=== PATIENT | female | born 1975 | race Hispanic/Latino ===

== ENCOUNTER 2017-02-01 07:47 | Day surgery (SDC) | payer SELFPAY ==
[2017-01-26 14:15] VITALS: BMI 22.6
[2017-02-01 08:44] VITALS: O2SAT 100
[2017-02-01] MEDS ORDERED: Lactated Ringer's 1,000 ML IV ONE (08:44)
[2017-02-01 09:18] LABS: BASO % 0.6 % (0.0-2.0); EOS # 0.1 K/uL (0.0-0.7); EOS % 1.6 % (0.0-4.0); HEMATOCRIT 40.1 % (34.0-47.0); LYMPH # 1.7 K/uL (1.0-4.3); LYMPH % 25.9 % (20.0-40.0); MEAN CELL VOLUME 91.8 fl (81.0-99.0); MEAN CORPUSCULAR HEMOGLOBIN 30.8 pg (27.0-31.0); MEAN CORPUSCULAR HGB CONC 33.6 g/dL (33.0-37.0); MEAN PLATELET VOLUME 8.5 fl (7.2-11.7); MONO # 0.4 K/uL (0.0-0.8); MONO % 6.6 % (0.0-10.0); NEUT # 4.2 K/uL (1.8-7.0); NEUT % 65.3 % (50.0-75.0); NRBC % 0.1 % (0.0-0.0); RED CELL DISTRIBUTION WIDTH 13.6 % (11.5-14.5); WHITE BLOOD COUNT 6.4 K/uL (4.8-10.8)
[2017-02-01 09:27] LABS: BLOOD UREA NITROGEN 13 mg/dl (7-17); CALCIUM 9.2 mg/dL (8.4-10.2); CARBON DIOXIDE 25 mmol/L (22-30); CHLORIDE 107 mmol/L (98-107); GFR AFRICAN-AMERICAN > 60; GLUCOSE,RANDOM 99 mg/dL (65-105)
[2017-02-01 09:29] LABS: SODIUM 140 mmol/l (132-148)
[2017-02-01] MEDS ORDERED: Succinylcholine 200 mg/10 ml Inj IV ONE (09:29)
[2017-02-01] MEDS ORDERED: Lidocaine 4% (Laryng-O-Jet) Kit MM ONE (09:29)
[2017-02-01] MEDS ORDERED: Propofol 10 mg/ml Inj (20 ML) ONE (09:29)
[2017-02-01] MEDS ORDERED: Lidocaine 2% MPF (5 ml) Inj ONE (09:31)
[2017-02-01] MEDS ORDERED: Dexamethasone 4 mg/1 ml ONE (09:32)
[2017-02-01] MEDS ORDERED: Strong Iodine Topical Sol. 5%-10% ONE (10:46)
[2017-02-01] MEDS ORDERED: Ferric Subsulfate Sol(60 mL) ONE (10:48)
[2017-02-01] MEDS ORDERED: Lactated Ringer's 1,000 ML IV SCH (11:04)
[2017-02-01] MEDS ORDERED: HYDROmorphone 0.5 mg/0.5 ml ISec IVP PRN (11:04)
[2017-02-01 11:47] VITALS: RESP 18
[2017-02-01 12:26] VITALS: BP 126/71; PULSE 77; TEMP 97.8
--- NOTE | 2017-02-01 14:25 | OP ---
PROCEDURE DATE: 02/01/2017 PREOPERATIVE DIAGNOSIS: This is a 41-year-old -0-3-0 with a known 1.7 cm submucosal fibroid with a recent history of miscarriage. POSTOPERATIVE DIAGNOSIS: This is a 41-year-old -0-3-0 with a known 1.7 cm submucosal fibroid with a recent history of miscarriage. PROCEDURE: Cervical dilation and an attempted hysteroscopy. SURGEON: Erica Joshua MD ANESTHESIOLOGIST: Toni Guallpa MD ANESTHESIA: General endotracheal tube anesthesia. COMPLICATIONS: None. EBL: Minimal. DESCRIPTION OF PROCEDURE: The patient was taken to the operating room with IV running. She was placed under general anesthesia. She was then prepped and draped in the dorsal lithotomy position. The bladder was emptied with a rubber catheter for clear urine. A weighted speculum was then placed in the posterior fornix of the vagina and a Calzada speculum was placed in the anterior wall of the vagina. Single tooth tenaculum was placed at the anterior lip of the cervix. The cervix was then gently dilated to about #18 dilator. The MyoSure scope was placed through the external os and it could not be placed past the level of the internal os. It was then attempted to dilate the cervix to #20 dilator and see if the scope could be placed into the endometrial cavity two more times. After the third attempt, it was decided to stop the procedure, so the scope was removed. The tenaculum was removed from the cervix and manual pressure was held with sponge on a stick. Hemostasis was noted. AstrinGyn was then applied to the tenaculum sites for further hemostasis. All instruments removed from the vagina. Sponge and instrument counts were correct. The patient was taken to the recovery room, extubated in stable condition. Erica Joshua MD [facility]
--- NOTE | 2017-02-01 16:19 | HP ---
HISTORY OF PRESENT ILLNESS: This is a 41-year-old G3, P0-0-3-0, last menstrual period was on 01/22/2017, who is scheduled today for hysteroscopic myomectomy due to an ultrasound done on 12/14/2016 revealing a submucosal fibroid that is about 1.7 cm in size. The patient reports that she would like to get and she reports that she had a miscarriage on 05/11/2016. The patient reports that she gets monthly periods that are not heavy. The patient is from [facility]. PAST MEDICAL HISTORY: No medical illness. PAST SURGICAL HISTORY: Dilation and curettage in 05/2016. MEDICATIONS: None. FAMILY HISTORY: Her parents are both alive and healthy, noncontributory. SOCIAL HISTORY: The patient does get exercise. She is . 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 She reports smoking a few cigarettes/ day, denies alcohol, or illicit drugs use. PAST GYNECOLOGIC HISTORY: The patient reports regular monthly periods that are not too heavy. She denies history of any STDs. OBSTETRIC HISTORY: She has had one miscarriage as above and 2 abortions in the past. ALLERGIES: NO KNOWN DRUG ALLERGIES. PHYSICAL EXAMINATION: VITAL SIGNS: Afebrile. Vital signs stable. ABDOMEN: Soft, nontender. EXTREMITIES: Nontender. In the office on 01/03/2017, her vaginal exam revealed white mucous discharge, adnexa with no masses, cervix normal, no cervical motion tenderness, and uterus is normal size and mobile. IMAGING: On 12/14/2016, ultrasound revealed a submucosal fibroid midline, 1 x 1.7 cm, not seen previously, unremarkable endometrial echo complex and normal adnexa. ASSESSMENT AND PLAN: This is a 41-year-old G3, P0-0-3-0, scheduled today for hysteroscopic myomectomy with unknown submucosal fibroid and history of miscarriages who desires to conceive. Erica Joshua MD [facility]
--- NOTE | 2017-02-15 08:41 | CP.SDSHP ---
Same Day Surgery H & P - Allergies Allergies: Allergies No Known Allergies Allergy (Verified 02/01/17 08:01) Short Stay Discharge - Short Stay Discharge Admitting Diagnosis/Reason for Visit: D25.0 R10.2 Disposition: HOME/ ROUTINE Referrals: Susanne Villar MD [Primary Care Provider] - Additional Instructions (Diet, Activity): Pt discharged home in stable condition and told to f/u in 2 weeks in the office.
== END 2017-02-01 12:50 | disposition home or self-care (01) ==
LOC: H.OPSURG 07:47
PROVIDERS: ATTEND Obstetrics & Gynecology
DX: D25.0 Submucous leiomyoma of uterus (principal); Z87.898 Personal history of other specified conditions; F17.210 Nicotine dependence, cigarettes, uncomplicated

== ENCOUNTER 2017-03-09 08:54 | Day surgery (SDC) | payer SELFPAY ==
[2017-03-07 11:59] VITALS: BMI 20.9
[2017-03-09 09:37] VITALS: RESP 18; O2SAT 99
[2017-03-09] MEDS ORDERED: Lactated Ringer's 1,000 ML IV ONE (09:49)
[2017-03-09] MEDS ORDERED: Silver Nitrate Topical - Stick ONE (10:33)
[2017-03-09] MEDS ORDERED: Strong Iodine Topical Sol. 5%-10% ONE (10:33)
[2017-03-09] MEDS ORDERED: Ferric Subsulfate Sol(60 mL) ONE (10:34)
[2017-03-09] MEDS ORDERED: Bupivacaine 0.5% Inj(30mL) ONE (10:34)
[2017-03-09] MEDS ORDERED: Lidocaine 1% Inj (20ml) ONE (10:34)
[2017-03-09] MEDS ORDERED: Propofol 10 mg/ml Inj (20 ML) ONE (10:55)
[2017-03-09] MEDS ORDERED: Midazolam 2 MG/2 ML VIAL ONE (10:55)
[2017-03-09] MEDS ORDERED: Ferric Subsulfate Sol(60 mL) TP ONE (11:50)
[2017-03-09] MEDS ORDERED: HYDROmorphone 0.5 mg/0.5 ml ISec IVP PRN (11:55)
[2017-03-09] MEDS ORDERED: Lactated Ringer's 1,000 ML IV SCH (11:55)
[2017-03-09 14:02] VITALS: PULSE 99
[2017-03-09 14:31] VITALS: BP 113/76; TEMP 97.8
--- NOTE | 2017-03-09 14:32 | HP ---
DATE: 03/09/2017 HISTORY OF PRESENT ILLNESS: This is a 41-year-old G3, P-0-0-3-0, last menstrual period on 02/16/2017, status post an attempted hysteroscopic myomectomy on 02/01/2017, which was not able to be completed due to the fact that the scope could not be placed beyond the internal os. The patient has a known submucosal fibroid and a history of miscarriage and the plan is for the patient to have the submucosal fibroid removed with hysteroscopy today. PAST MEDICAL HISTORY: Healthy. MEDICATIONS: None; the patient placed 2 misoprostol tablets 200 mcg (400mcg) in the vagina last night to help dilate her cervix. PAST SURGICAL HISTORY: D and C in 05/2016. SOCIAL HISTORY: The patient is . 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 She reports an occasional cigarette. Denies alcohol and illicit drug use. PAST GYNECOLOGIC HISTORY: She gets monthly periods. The patient denies history of abnormal Pap smears and denies history of STD's. PAST OBSTETRIC HISTORY: The patient has a history of 2 abortions and 1 miscarriage. Her miscarriage was in 05/2016. ALLERGIES: NO KNOWN DRUG ALLERGIES. FAMILY HISTORY: Noncontributory. PHYSICAL EXAMINATION: VITAL SIGNS: Afebrile. Vital signs stable. GENERAL: The patient appears comfortable lying in bed. ABDOMEN: Soft, nontender. EXTREMITIES: Nontender. IMAGING: On 12/14/2016, the patient underwent a pelvic ultrasound. Her uterus measures 3.7 x 5.3 x 7.4 cm. Normal size and appearance. Submucosal fibroid midline 1 x 1.7 cm, this impresses upon the endometrial echo complex. Normal adnexa. ASSESSMENT AND PLAN: This is a 41-year-old 3, uwos-7-5-3-0, who is admitted today to undergo a hysteroscopic myomectomy. Consents signed. Erica Joshua MD [facility]
--- NOTE | 2017-03-09 22:01 | OP ---
PROCEDURE DATE: 03/09/2017 PREOPERATIVE DIAGNOSIS: This is a 41-year-old G3, P0-0-3-0 with a known submucosal fibroid seen on ultrasound, status post miscarriage, who desires to conceive. POSTOPERATIVE DIAGNOSIS: This is a 41-year-old G3, P0-0-3-0 with a known submucosal fibroid seen on ultrasound, status post miscarriage, who desires to conceive. PROCEDURE: Cervical dilation and hysteroscopic myomectomy with MyoSure Reach. SURGEON: Letitia Joshua MD. ANESTHESIOLOGIST: Dr. Cirilo Acevedo TYPE OF ANESTHESIA: General with LMA. DEFICIT: 100 mL. ESTIMATED BLOOD LOSS: Minimal. SPECIMEN: Submucosal fibroid fragments FINDINGS: A small anteverted uterus with a submucosal fibroid on the right side of the mid-portion of the cavity. Both ostia were able to be visualized at the end of the case. The endometrium was noted to be fluffy likely given that she was in the secretory phase of her menstrual cycle. DESCRIPTION OF PROCEDURE: The patient was taken to the operating room with IV running and was placed under general anesthesia with LMA. She was then prepped draped in the dorsolithotomy position. Initially, her bladder was emptied with a red rubber catheter for clear urine. A weighted speculum was placed against the posterior fornix of the vagina and a Calzada speculum was placed at the anterior wall of the vagina. A single tooth tenaculum was placed at the anterior lip of the cervix. The cervix was then gently dilated to accommodate the MyoSure scope. Initially the scope was placed into a false cavity but then the opening to the endometrial cavity was identified and the scope was able to be placed into the endometrial cavity. The submucosal fibroid on the right was identified and this was removed using the MyoSure Reach. When the cavity appeared normal, the scope was removed from the uterus. The tenaculum was then removed and pressure was applied on the tenaculum sites with a sponge on Ring forceps. AstrinGyn was then applied for further hemostasis. All instruments were removed from the vagina. All counts were correct. The patient was then taken to the recovery room in stable condition. Erica Joshua MD [facility] # [id number] MTDD
== END 2017-03-09 14:45 | disposition home or self-care (01) ==
LOC: H.OPSURG 08:54
PROVIDERS: ATTEND Obstetrics & Gynecology
DX: R10.2 Pelvic and perineal pain (principal); D25.0 Submucous leiomyoma of uterus
CPT/HCPCS: 36415; 58558; 86850; 86900; 88305; J1170; J2001; J2250; J2405; J2704; J3010; J7030; J7120

== ENCOUNTER 2018-02-19 09:23 | Emergency (ER) | payer OTHER, SELFPAY ==
[2018-02-19 09:34] VITALS: O2SAT 99
[2018-02-19 09:35] VITALS: BMI 22.1
--- NOTE | 2018-02-19 09:57 | ED PDOC ---
HPI: Female Pain Time Seen by Provider: 02/19/18 09:40 Chief Complaint (Provider): Fever History Per: Patient History/Exam Limitations: no limitations Additional Complaint(s): Pt reports fever (38 degrees) X 6 days, pressure with urination and L sided back pain. Last took Tylenol yesterday. Denies nausea, vomiting, hematuria, constipation, diarrhea. Abnormal Vaginal Bleeding: No Past Medical History Reviewed: Nursing Documentation, Vital Signs Vital Signs: Last Vital Signs Temp 99 F 02/19/18 09:33 Pulse 74 02/19/18 09:33 Resp BP 122/78 02/19/18 09:33 Pulse Ox 99 02/19/18 09:33 - Medical History PMH: No Chronic Diseases Denies: Chronic Kidney Disease - Surgical History Other surgeries: Hysterectomy - Family History Family History: States: Unknown Family Hx - Living Arrangements Living Arrangements: With Family - Social History Current smoker - smoking cessation education provided: No Alcohol: None - Immunization History Hx Tetanus Toxoid Vaccination: No Hx Influenza Vaccination: No Hx Pneumococcal Vaccination: No - Home Medications Home Medications: Ambulatory Orders Medication Instructions Recorded Ciprofloxacin [Cipro] 500 mg PO BID #5 tab 02/19/18 Naproxen [Naprosyn] 500 mg PO BID PRN #15 tablet 02/19/18 - Allergies Allergies/Adverse Reactions: Allergies Allergy/AdvReac Type Severity Reaction Status Date / Time No Known Allergies Allergy Verified 03/09/17 09:14 Review of Systems Constitutional: Positive for: Fever. Negative for: Chills, Weakness, Malaise Respiratory: Negative for: Cough Gastrointestinal: Positive for: Abdominal Pain. Negative for: Nausea, Vomiting , Diarrhea Genitourinary Female: Positive for: Dysuria. Negative for: Hematuria, Vaginal Discharge, Vaginal Bleeding Musculoskeletal: Positive for: Back Pain Skin: Negative for: Rash, Lesions Neurological: Negative for: Headache Physical Exam - Reviewed Nursing Documentation Reviewed: Yes Vital Signs Reviewed: Yes - Physical Exam Appears: Positive for: Well, No Acute Distress Head Exam: Positive for: ATRAUMATIC, NORMAL INSPECTION Skin: Positive for: Normal Color, Warm, Dry Eye Exam: Positive for: Normal appearance, EOMI, PERRL Cardiovascular/Chest: Positive for: Regular Rate, Rhythm Respiratory: Positive for: Normal Breath Sounds Gastrointestinal/Abdominal: Positive for: Bowel Sounds, Soft. Negative for: Tenderness Back: Positive for: Normal Inspection, L CVA Tenderness. Negative for: R CVA Tenderness Neurologic/Psych: Positive for: Alert, Oriented - Laboratory Results Result Diagrams: 02/19/18 11:00 02/19/18 11:00 - ECG O2 Sat by Pulse Oximetry: 99 Medical Decision Making Medical Decision Makin yo female with dysuria and flank pain. - UA - labs - CT abd/pelvis - IVF Accession No. : [id number] Patient Name / ID : MANJU ORNELAS / [id number] Exam Date : 02/19/2018 12:39:00 ( Approved ) Study Comment : Sex / Age : F / 42Y Creator : Sarahi Vincent MD Dictator : Sarahi Vincent MD Photographic Platemaker : Data Analyst : Sarahi Vincent MD Approver2 : Report Date : 02/19/2018 13:13:34 My Comment : Date of service: 02/19/2018 PROCEDURE: CT Abdomen and Pelvis with contrast HISTORY: L flank pain COMPARISON: None. TECHNIQUE: CT scan of the abdomen and pelvis was performed after administration of intravenous contrast. Oral contrast was not administered. Coronal and sagittal reformatted images were obtained. Contrast dose: 95 cc Omnipaque 300 Radiation dose: Total exam DLP = 350.90 mGy-cm. This CT exam was performed using one or more of the following dose reduction techniques: Automated exposure control, adjustment of the mA and/or kV according to patient size, and/or use of iterative reconstruction technique. FINDINGS: LOWER THORAX: There is dependent atelectasis in the lung bases. LIVER: Mild hepatomegaly and diffuse fatty. No gross lesion or ductal dilatation. GALLBLADDER AND BILE DUCTS: No calcified gallstones. PANCREAS: Normal in size with homogeneous enhancement. No gross lesion or ductal dilatation. SPLEEN: Normal in size and appearance. ADRENALS: No discrete nodule. KIDNEYS AND URETERS: Normal in size with homogeneous enhancement. No hydronephrosis. No solid mass. VASCULATURE: No aortic aneurysm. BOWEL: There is fluid in the small bowel and colon. No evidence of bowel wall thickening. No bowel dilatation or obstruction APPENDIX: Normal appendix. PERITONEUM: Small amount of free fluid in the cul de sac is likely physiologic. No free air. LYMPH NODES: No enlarged lymph nodes. BLADDER: Well distended and normal in appearance. REPRODUCTIVE: The uterus is normal in size. There is a 2.3 cm cyst in the right ovary. BONES: No acute fracture. Within normal limits for the patient's age. OTHER FINDINGS: None. IMPRESSION: Fluid-filled small bowel and colon may represent nonspecific infectious/ inflammatory enteritis in the appropriate clinical setting. No evidence of bowel obstruction. Mild hepatomegaly and hepatic steatosis. Will administer Cipro to treat clinical UTI and enteritis. Disposition - Clinical Impression Clinical Impression: UTI (urinary tract infection), Enteritis - Disposition Referrals: [facility] [Outside] Disposition: Routine/Home Disposition Time: 13:47 Condition: STABLE Prescriptions: Ciprofloxacin [Cipro] 500 mg PO BID #5 tab Naproxen [Naprosyn] 500 mg PO BID PRN #15 tablet PRN Reason: Pain, Moderate (4-7) Instructions: Urinary Tract Infections in Adults Forms: [facility] ([place])
[2018-02-19 10:25] LABS: SQUAMOUS EPITHIAL 12 /hpf (0-5); URINE BACTERIA RARE (<OCC); URINE BILIRUBIN NEGATIVE (NEGATIVE); URINE BLOOD SMALL (NEGATIVE); URINE CLARITY CLOUDY (Clear); URINE COLOR YELLOW (YELLOW); URINE GLUCOSE (UA) NEG (Normal); URINE LEUKOCYTE ESTERASE SMALL Leu/uL (Negative); URINE PROTEIN NEGATIVE (NEGATIVE); URINE UROBILINOGEN 0.2-1.0 mg/dL (0.2-1.0)
[2018-02-19] MEDS ORDERED: Sodium Chloride 0.9% 1,000 ML IV STA (10:43)
[2018-02-19 11:14] LABS: BASO % 0.4 % (0.0-2.0); EOS % 0.3 % (0.0-4.0); HEMOGLOBIN 13.9 g/dL (12.0-16.0); LYMPH # 1.5 K/uL (1.0-4.3); LYMPH % 46.3 % (20.0-40.0); MEAN CELL VOLUME 90.4 fl (81.0-99.0); MEAN CORPUSCULAR HEMOGLOBIN 31.9 pg (27.0-31.0); MEAN CORPUSCULAR HGB CONC 35.3 g/dL (33.0-37.0); MEAN PLATELET VOLUME 8.8 fl (7.2-11.7); MONO # 0.3 K/uL (0.0-0.8); MONO % 10.8 % (0.0-10.0); NEUT # 1.3 K/uL (1.8-7.0); NEUT % 42.2 % (50.0-75.0); NRBC % 0.3 % (0.0-0.0); RBC 4.37 Mil/uL (3.80-5.20); WHITE BLOOD COUNT 3.2 K/uL (4.8-10.8)
[2018-02-19 11:24] LABS: ALB/GLOB RATIO 1.4 (1.0-2.1); ALT/SGPT 21 U/L (9-52); AST/SGOT 21 U/L (14-36); BLOOD UREA NITROGEN 11 mg/dl (7-17); CALCIUM 8.8 mg/dL (8.4-10.2); GFR AFRICAN-AMERICAN > 60; GFR NON-AFRICAN AMERICAN > 60
[2018-02-19] MEDS ORDERED: Iohexol 300 100 ML IJ ONE (12:21)
[2018-02-19] MEDS ORDERED: Sodium Chloride 0.9% 50 ML IV ONE (12:21)
--- NOTE | 2018-02-19 13:15 | CT ---
Date of service: 02/19/2018 PROCEDURE: CT Abdomen and Pelvis with contrast HISTORY: L flank pain COMPARISON: None. TECHNIQUE: CT scan of the abdomen and pelvis was performed after administration of intravenous contrast. Oral contrast was not administered. Coronal and sagittal reformatted images were obtained. Contrast dose: 95 cc Omnipaque 300 Radiation dose: Total exam DLP = 350.90 mGy-cm. This CT exam was performed using one or more of the following dose reduction techniques: Automated exposure control, adjustment of the mA and/or kV according to patient size, and/or use of iterative reconstruction technique. FINDINGS: LOWER THORAX: There is dependent atelectasis in the lung bases. LIVER: Mild hepatomegaly and diffuse fatty. No gross lesion or ductal dilatation. GALLBLADDER AND BILE DUCTS: No calcified gallstones. PANCREAS: Normal in size with homogeneous enhancement. No gross lesion or ductal dilatation. SPLEEN: Normal in size and appearance. ADRENALS: No discrete nodule. KIDNEYS AND URETERS: Normal in size with homogeneous enhancement. No hydronephrosis. No solid mass. VASCULATURE: No aortic aneurysm. BOWEL: There is fluid in the small bowel and colon. No evidence of bowel wall thickening. No bowel dilatation or obstruction APPENDIX: Normal appendix. PERITONEUM: Small amount of free fluid in the cul de sac is likely physiologic. No free air. LYMPH NODES: No enlarged lymph nodes. BLADDER: Well distended and normal in appearance. REPRODUCTIVE: The uterus is normal in size. There is a 2.3 cm cyst in the right ovary. BONES: No acute fracture. Within normal limits for the patient's age. OTHER FINDINGS: None. IMPRESSION: Fluid-filled small bowel and colon may represent nonspecific infectious/inflammatory enteritis in the appropriate clinical setting. No evidence of bowel obstruction. Mild hepatomegaly and hepatic steatosis.
[2018-02-19 14:33] VITALS: BP 124/70; PULSE 76; RESP 18; TEMP 98.9
== END 2018-02-19 14:32 | disposition home or self-care (01) ==
LOC: H.ER 09:23
DX: N39.0 Urinary tract infection, site not specified (principal); K52.9 Noninfective gastroenteritis and colitis, unspecified
CPT/HCPCS: 74177; 80053; 81003; 81025; 85025; 99283; J7030; Q9967